=== PATIENT | female | born 1960 ===

== ENCOUNTER 2019-09-13 08:14 | Outpatient (CLI) | payer OTHER ==
[~2019-09-13 08:14] MED LIST: ALDOMET500 MG PO; AVAPRO150 MG PO; CLONAZEP PO; SPIRINOLACTONE PO; TENEX PO; TRILIPIX PO
== END 2019-09-13 08:21 | disposition home or self-care (01) ==
LOC: RX STUDY 08:14
DX: N30.00 Acute cystitis without hematuria (principal); Q62.7 Congenital vesico-uretero-renal reflux